=== PATIENT | male | born 1955 | race Asian ===

== ENCOUNTER 2023-01-04 16:18 | Emergency (ER) | payer MEDICARE, MEDICAID ==
[~2023-01-04] VITALS: Ht 172.7 cm; Wt 86.8 kg
[2023-01-04 16:20] VITALS: BP 180/90
[2023-01-04] MEDS ORDERED: ACETAMINOPHEN 325MG TABLET PO STA (16:43)
[2023-01-04] MEDS ORDERED: SODIUM CHLORIDE 0.9% 1,000 ML IV ONE (16:45)
== END 2023-01-04 22:10 | disposition left against medical advice (07) ==
LOC: ER 16:35
DX: Z53.21 Procedure and treatment not carried out due to patient leaving prior to being seen by health care provider (principal)
CPT/HCPCS: J7030